=== PATIENT | female | born 2000 | race Caucasian/White ===

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

== ENCOUNTER 2018-07-21 17:50 | Emergency (ER) | payer OTHER ==
--- NOTE | 2018-07-21 19:04 | EDPHY ---
HPI/HX/ROS/PE/MDM Narrative: CHIEF COMPLAINT: Near syncope x 3 days HPI: The patient is a 18 y/o female with a history of heroin abuse and hepatitis C complaining of multiple episodes of near syncope for 3 days. She last used heroin 30 days ago and has been in rehab for several weeks. For the last 3 days she has had several episodes of near-syncopal episodes. When these episodes occur, she feels like she is "out of it" and can't hear well. She then sits down and puts her legs up which helps her symptoms. She denies history of similar prior episodes. Her last menstrual cycle was 5-6 months ago, but she denies any chance of being . No headache, chest pain, shortness of breath, abdominal pain, urinary or bowel complaints, numbness, fevers. REVIEW OF SYSTEMS: Aside from elements discussed in the HPI, a comprehensive 10 system review of systems is otherwise negative. PMH: Heroin abuse, hepatitis C SOCIAL HISTORY: Lives in [place], single, not employed PHYSICAL EXAM: General: Patient is alert, in no acute distress. ENT: Eyes are normal to inspection. ENT inspection normal. Neck: Normal inspection. Full range of motion. Respiratory: No respiratory distress. Breath sounds normal bilaterally. Cardiovascular: Regular rate and rhythm. Strong peripheral pulses. Normal cap refill. Abdomen: The abdomen is nontender to palpation. There are no peritoneal signs. There are normal bowel sounds. Back: Normal to inspection. No tenderness to palpation. Skin: Normal color. No rash. Warm and dry. Extremities: Normal appearance. Full range of motion. Neuro: Oriented x3. Normal motor function. Normal sensory function. ED Course: 1927: I reviewed patient's EKG, which is unremarkable. 2030: Reassessed patient and discussed laboratory and EKG findings. She is feeling better after 1L IV NS and is requesting to go home. I have advised her to follow up with her PCP. Return precautions provided; patient is comfortable with this plan. - Data Points Laboratory Results: Laboratory Results 07/21/18 20:05 07/21/18 20:05 07/21/18 07/21/18 07/21/18 20:05 20:05 18:06 WBC 6.25 10^3/uL 10^3/uL (3.80-9.50) RBC 4.86 10^6/uL 10^6/uL (4.18-5.33) Hgb 13.7 g/dL g/dL (12.6-16.3) Hct 40.6 % % (38.0-47.0) MCV 83.5 fL fL (81.5-99.8) MCH 28.2 pg pg (27.9-34.1) MCHC 33.7 g/dL g/dL (32.4-36.7) RDW 14.5 % % (11.5-15.2) Plt Count 222 10^3/uL 10^3/uL (150-400) MPV 10.3 fL fL (8.7-11.7) Neut % (Auto) 39.7 % % (39.3-74.2) Lymph % (Auto) 46.1 % H % (15.0-45.0) [place] % (Auto) 10.1 % % (4.5-13.0) Eos % (Auto) 3.4 % % (0.6-7.6) Baso % (Auto) 0.5 % % (0.3-1.7) Nucleat RBC Rel Count 0.0 % % (0.0-0.2) Absolute Neuts (auto) 2.49 10^3/uL 10^3/uL (1.70-6.50) Absolute Lymphs (auto) 2.88 10^3/uL 10^3/uL (1.00-3.00) Absolute Monos (auto) 0.63 10^3/uL 10^3/uL (0.30-0.80) Absolute Eos (auto) 0.21 10^3/uL 10^3/uL (0.03-0.40) Absolute Basos (auto) 0.03 10^3/uL 10^3/uL (0.02-0.10) Absolute Nucleated RBC 0.00 10^3/uL 10^3/uL (0-0.01) Immature Gran % 0.2 % % (0.0-1.1) Immature Gran # 0.01 10^3/uL 10^3/uL (0.00-0.10) Sodium 139 mEq/L mEq/L (135-145) Potassium 4.4 mEq/L mEq/L (3.3-5.0) Chloride 106 mEq/L mEq/L (97-110) Carbon Dioxide 22 mEq/l mEq/l (22-31) Anion Gap 11 mEq/L mEq/L (6-14) BUN 15 mg/dL mg/dL (7-23) Creatinine 0.6 mg/dL mg/dL (0.6-1.0) Estimated GFR > 60 Glucose 91 mg/dL mg/dL (70-100) Calcium 9.6 mg/dL mg/dL (8.5-10.4) Total Bilirubin 1.0 mg/dL mg/dL (0.1-1.4) Conjugated Bilirubin 0.3 mg/dL mg/dL (0.0-0.5) Unconjugated Bilirubin 0.7 mg/dL mg/dL (0.0-1.1) AST 28 IU/L IU/L (14-46) ALT 31 IU/L IU/L (9-52) Alkaline Phosphatase 90 IU/L IU/L (38-126) Total Protein 7.6 g/dL g/dL (6.3-8.2) Albumin 4.5 g/dL g/dL (3.5-5.0) Urine Color YELLOW Urine Appearance HAZY Urine pH 5.0 (5.0-7.5) Ur Specific [place] 1.015 (1.002-1.030) Urine Protein NEGATIVE (NEGATIVE) Urine Ketones NEGATIVE (NEGATIVE) Urine Blood NEGATIVE (NEGATIVE) Urine Nitrate NEGATIVE (NEGATIVE) Urine Bilirubin NEGATIVE (NEGATIVE) Urine Urobilinogen NEGATIVE EU EU (0.2-1.0) Ur Leukocyte Esterase NEGATIVE (NEGATIVE) Urine Glucose NEGATIVE (NEGATIVE) Urine Test 07/21/18 18:00 WBC RBC Hgb Hct MCV MCH MCHC RDW Plt Count MPV Neut % (Auto) Lymph % (Auto) [place] % (Auto) Eos % (Auto) Baso % (Auto) Nucleat RBC Rel Count Absolute Neuts (auto) Absolute Lymphs (auto) Absolute Monos (auto) Absolute Eos (auto) Absolute Basos (auto) Absolute Nucleated RBC Immature Gran % Immature Gran # Sodium Potassium Chloride Carbon Dioxide Anion Gap BUN Creatinine Estimated GFR Glucose Calcium Total Bilirubin Conjugated Bilirubin Unconjugated Bilirubin AST ALT Alkaline Phosphatase Total Protein Albumin Urine Color Urine Appearance Urine pH Ur Specific [place] Urine Protein Urine Ketones Urine Blood Urine Nitrate Urine Bilirubin Urine Urobilinogen Ur Leukocyte Esterase Urine Glucose Urine Test NEGATIVE Medications Given: Discontinued Medications Sodium Chloride (Ns) 1,000 mls @ 0 mls/hr IV EDNOW ONE; Wide Open PRN Reason: Protocol Stop: 07/21/18 19:17 Last Admin: 07/21/18 20:15 Dose: Not Given Point of Care Test Results: Urine Collection Date 07/21/18 Collection Time 18:08 HCG Results Negative General Time Seen by Provider: 07/21/18 19:02 Initial Vital Signs: Initial Vital Signs Temperature (C) 36.7 C 07/21/18 17:54 Heart Rate 78 07/21/18 17:54 Respiratory Rate 16 07/21/18 17:54 Blood Pressure 112/60 07/21/18 17:54 O2 Sat (%) 97 07/21/18 17:54 O2 Delivery Mode Room Air Allergies/Adverse Reactions: No Known Allergies Allergy (Verified 07/21/18 17:53) Home Medications: Medication Instructions Recorded Prozac 10 MG (*) 11/14/16 Clonidine 07/21/18 SUBOXONE 2mg/0.5mg 07/21/18 hydrOXYzine HCL 07/21/18 traZODone 07/21/18 Departure - Departure Disposition: Home, Routine, Self-Care Clinical Impression: Near syncope Condition: Good Instructions: Syncope (ED), Near Syncope (ED) Additional Instructions: Drink plenty of fluids. Return to the emergency department immediately for headache, numbness, weakness, severe vertigo, neck pain, inability to tolerate fluids by mouth or other worsening of condition. If symptoms persist for more than 48 hours, followup with your primary care physician for further evaluation. Referrals: [facility],. [Clinic] - As per Instructions Rashid Srinivasan MD [[facility] [place]] - As per Instructions Report Scribed for: Paul Mims Report Scribed by: Mini Duke Date of Report: 07/21/18 Time of Report: 19:03 Physician Review and Approval Statement: Portions of this note were transcribed by an ED scribe. I personally performed the history, physical exam, and medical decision making; and confirm the accuracy of the information in the transcribed note.
[2018-07-21] MEDS ORDERED: NS 1,000 ML IV ONE (19:16)
[2018-07-21 20:18] LABS: PLATELET COUNT 222 10^3/uL (150-400)
[2018-07-21 21:01] VITALS: BP 124/81
--- NOTE | 2018-07-23 15:12 | CPEKG ---
Test Reason : OPEN Blood Pressure : / mmHG Vent. Rate : 093 BPM Atrial Rate : 094 BPM P-R Int : 115 ms QRS Dur : 092 ms QT Int : 384 ms P-R-T Axes : 048 056 038 degrees QTc Int : 478 ms Sinus rhythm Borderline prolonged QT interval Confirmed by Paul Mims ([id number]) on 07/23/2018 3:11:50 PM Referred By: Confirmed By:Paul Mims
== END 2018-07-21 20:55 | disposition home or self-care (01) ==
DX: R55 Syncope and collapse (principal); E86.9 Volume depletion, unspecified; F11.10 Opioid abuse, uncomplicated; B19.20 Unspecified viral hepatitis C without hepatic coma